=== PATIENT | female | born 1990 | race Caucasian/White ===

== ENCOUNTER 2019-06-02 14:33 | Emergency (ER) | payer OTHER ==
[2019-06-02] MEDS ORDERED: dexAMETHasone 4 MG TAB ONE (15:33)
[2019-06-02] MEDS ORDERED: ACETAMINOPHEN 500 MG TAB ONE (15:33)
--- NOTE | 2019-06-02 15:33 | ER ---
Nurse's Notes [facility] Name: Kristyn Fernando Age: 28 yrs Sex: Female : 1990 Arrival Date: 06/02/2019 Time: 14:37 Bed 13 Private MD: Diagnosis: Acute tonsillitis Presentation: 06/02 14:39 Presenting complaint: Patient states: sore throat, pain with swallowing, fatigue, la1 malaise, low back pain and urinary frequency. Transition of care: patient was not received from another setting of care. Onset of symptoms was June 02, 2019. Risk Assessment: Do you want to hurt yourself or someone else? Patient reports no desire to harm self or others. Initial Sepsis Screen: Does the patient meet any 2 criteria? No. Patient's initial sepsis screen is negative. Does the patient have a suspected source of infection? No. Patient's initial sepsis screen is negative. Care prior to arrival: None. 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 - Social history:: Smoking status: Patient uses tobacco products, denies chronic smoking, but will smoke occasionally. - Ebola Screening: : No symptoms or risks identified at this time. Screenin:30 Abuse screen: Denies threats or abuse. Denies injuries from another. Nutritional jl7 screening: No deficits noted. Tuberculosis screening: No symptoms or risk factors identified. Fall Risk None identified. Assessment: 15:30 General: Appears in no apparent distress. uncomfortable, Behavior is calm, cooperative, jl7 appropriate for age. Pain: Complains of pain in low back area Pain began 2-3 days ago. Is continuous. Neuro: Level of Consciousness is awake, alert, obeys commands, Oriented to person, place, time, situation. Cardiovascular: Patient's skin is warm and dry. Respiratory: Airway is patent Respiratory effort is even, unlabored, Respiratory pattern is regular, symmetrical. GI: Abdomen is flat, non-distended, Reports nausea. : Reports burning with urination, "It was burning but isn't burning anymore but I do feel like I have to go all the time but I only go a little." urinary frequency. EENT: Throat is reddened has patchy exudate has enlarged tonsils bilaterally. Derm: Skin is pink, warm \\T\\ dry. Vital Signs: 14:39 BP 99 / 67; Pulse 115; Resp 16; Temp 100.3; Pulse Ox 100% on R/A; Weight 56.7 kg; la1 Height 5 ft. 2 in. (157.48 cm); 14:39 Body Mass Index 22.86 (56.70 kg, 157.48 cm) la1 ED Course: 14:37 Patient arrived in ED. mr 14:39 Triage completed. la1 14:40 Arm band placed on left wrist. la1 15:21 Theodore Ayala PA is PHCP. cp 15:21 Theodore Hargrove MD is Attending Physician. cp 15:29 Michele Kyle RN is Primary Nurse. jl7 15:30 Patient has correct armband on for positive identification. Bed in low position. Call jl7 light in reach. Side rails up X 1. 15:40 Throat Culture Sent. jl7 15:50 No provider procedures requiring assistance completed. Patient did not have IV access jl7 during this emergency room visit. Administered Medications: 15:40 Drug: Tylenol 1000 mg Route: PO; jl7 15:50 Follow up: Response: No adverse reaction; Medication administered at discharge. jl7 15:40 Drug: Zofran 4 mg Route: PO; jl7 15:50 Follow up: Response: No adverse reaction; Medication administered at discharge. jl7 15:40 Drug: Decadron 10 mg Route: PO; jl7 15:50 Follow up: Response: Medication administered at discharge. jl7 Outcome: 15:32 Discharge ordered by MD. cp 15:50 Discharged to home ambulatory. jl7 15:50 Condition: stable 15:50 Discharge instructions given to patient, Instructed on discharge instructions, follow up and referral plans. medication usage, Demonstrated understanding of instructions, follow-up care, medications, Prescriptions given X 3. 15:54 Patient left the ED. jl7 Signatures: Irasema Hutton AlAnatoly porras, RN RN la1 Theodore Ayala PA PA cp Michele Kyle RN RN jl7 Corrections: (The following items were deleted from the chart) 14:46 14:39 BP 99 / 67; Pulse 115bpm; Resp 16bpm; Pulse Ox 100% RA; Temp 98.7F; 56.7 kg; la1 Height 5 ft. 2 in.; BMI: 22.8; la1
--- NOTE | 2019-06-02 15:33 | EDPHYS ---
Physician Documentation [facility] Name: Kristyn Fernando Age: 28 yrs Sex: Female : 1990 Arrival Date: 06/02/2019 Time: 14:37 Bed 13 Private MD: ED Physician Theodore Hargrove HPI: 06/02 15:29 This 28 yrs old Female presents to ER via Ambulatory with complaints of Flu cp Symptoms, Back Pain. 15:29 The patient presents with sore throat. Onset: The symptoms/episode began/occurred last cp night. Severity of symptoms: in the emergency department the symptoms are unchanged. Associated signs and symptoms: Pertinent positives: fever, nausea, abdominal pain, back pain. 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 - Social history:: Smoking status: Patient uses tobacco products, denies chronic smoking, but will smoke occasionally. - Ebola Screening: : No symptoms or risks identified at this time. ROS: 15:30 Constitutional: Positive for body aches. cp 15:30 Eyes: Negative for injury, pain, redness, and discharge. cp 15:30 ENT: Positive for sore throat, Negative for drainage from ear(s), ear pain, difficulty swallowing, difficulty handling secretions. 15:30 Respiratory: Negative for cough, wheezing. 15:30 Abdomen/GI: Negative for abdominal pain, vomiting, diarrhea, constipation. 15:30 Back: Positive for pain at rest, pain with movement. 15:30 : Positive for urinary frequency, Negative for burning with urination. 15:30 Skin: Negative for rash. 15:30 Neuro: Negative for altered mental status, weakness. 15:30 All other systems are negative. Exam: 15:31 Head/Face: Normocephalic, atraumatic. cp 15:31 Constitutional: The patient appears in no acute distress, alert, awake, non-toxic, well developed, well nourished. 15:31 Eyes: Periorbital structures: appear normal, Conjunctiva: normal, no exudate, no injection, Lids and lashes: appear normal, bilaterally. 15:31 ENT: External ear(s): are unremarkable, Ear canal(s): are normal, clear, TM's: dullness, bilaterally, Nose: is normal, Mouth: Lips: moist, Oral mucosa: moist, Posterior pharynx: Airway: no evidence of obstruction, patent, Tonsils: enlarged on the right, with erythema, with exudate, Uvula: midline, erythema, that is moderate, Voice: is normal. 15:31 Neck: ROM/movement: is normal, is supple, no range of motions limitations, no meningismus, no nuchal rigidity, Lymph nodes: lymphadenopathy is appreciated, anterior cervical nodes. 15:31 Chest/axilla: Inspection: normal, Palpation: is normal, no crepitus, no tenderness. 15:31 Cardiovascular: Rate: tachycardic, Rhythm: regular. 15:31 Respiratory: the patient does not display signs of respiratory distress, Respirations: normal, no use of accessory muscles, no retractions, no splinting, no tachypnea, labored breathing, is not present, Breath sounds: are clear throughout, no decreased breath sounds, no stridor, no wheezing. 15:31 Abdomen/GI: Inspection: abdomen appears normal, Bowel sounds: active, all quadrants, Palpation: soft, in all quadrants, mild abdominal tenderness, in all quadrants, rebound tenderness, is not appreciated, voluntary guarding, is not appreciated, involuntary guarding, is not appreciated. 15:31 Back: CVA tenderness, is absent. 15:31 Skin: no rash present. 15:31 Neuro: Orientation: to person, place \T\ time. Mentation: is normal, Motor: moves all fours, strength is normal, Sensation: is normal. Vital Signs: 14:39 BP 99 / 67; Pulse 115; Resp 16; Temp 100.3; Pulse Ox 100% on R/A; Weight 56.7 kg; la1 Height 5 ft. 2 in. (157.48 cm); 14:39 Body Mass Index 22.86 (56.70 kg, 157.48 cm) la1 MDM: 15:23 Patient medically screened. cp 15:30 Differential diagnosis: apthous stomatitis, apthous ulcer, group A strep tonsillitis, cp mononucleosis, peritonsillar abscess pharyngitis, retropharyngeal abcess. 15:32 Data reviewed: vital signs, nurses notes, lab test result(s), and as a result, I will cp discharge patient. 15:32 Counseling: I had a detailed discussion with the patient and/or guardian regarding: the cp historical points, exam findings, and any diagnostic results supporting the discharge/admit diagnosis, lab results, to return to the emergency department if symptoms worsen or persist or if there are any questions or concerns that arise at home. 06/02 14:40 Order name: Strep la1 06/02 15:11 Order name: Urine Dipstick--Ancillary (enter results) 06/02 15:11 Order name: Urine --Ancillary (enter results) 06/02 15:15 Order name: Throat Culture [facility] 06/02 15:30 Order name: PO challenge; Complete Time: 15:40 cp Administered Medications: 15:40 Drug: Tylenol 1000 mg Route: PO; jl7 15:50 Follow up: Response: No adverse reaction; Medication administered at discharge. jl7 15:40 Drug: Zofran 4 mg Route: PO; jl7 15:50 Follow up: Response: No adverse reaction; Medication administered at discharge. jl7 15:40 Drug: Decadron 10 mg Route: PO; jl7 15:50 Follow up: Response: Medication administered at discharge. jl7 Disposition: 16:08 Co-signature as Attending Physician, Theodore Hargrove MD I agree with the assessment and isabel plan of care. Disposition: 06/02/19 15:32 Discharged to Home. Impression: Acute tonsillitis. - Condition is Stable. - Discharge Instructions: Tonsillitis. - Prescriptions for Biaxin 500 mg Oral Tablet - take 1 tablet by ORAL route every 12 hours for 10 days; 20 tablet. Ibuprofen 800 mg Oral Tablet - take 1 tablet by ORAL route every 8 hours As needed take with food; 30 tablet. Zofran 4 mg Oral Tablet - take 1 tablet by ORAL route every 12 hours As needed; 20 tablet. - Medication Reconciliation Form, Thank You Letter, Antibiotic Education, Prescription Opioid Use form. - Follow up: Private Physician; When: 2 - 3 days; Reason: Worsening of condition. - Problem is new. - Symptoms have improved. Signatures: Dispatcher [employer] Theodore Foy MD MD cha Attema, Lee RN RN la1 Theodore Ayala PA PA cp Leal, Jahala, RN RN jl7 Corrections: (The following items were deleted from the chart) 15:54 15:32 06/02/2019 15:32 Discharged to Home. Impression: Acute tonsillitis. Condition is jl7 Stable. Forms are Medication Reconciliation Form, Thank You Letter, Antibiotic Education, Prescription Opioid Use. Follow up: Private Physician; When: 2 - 3 days; Reason: Worsening of condition. Problem is new. Symptoms have improved. cp
[2019-06-02] MEDS ORDERED: ONDANSETRON 4 MG (ODT) TAB ONE (15:34)
[2019-06-02 17:21] LABS: Urine Blood NEGATIVE (NEG); Urine Glucose NEGATIVE (NEG); Urine Protein TRACE (NEG)
== END 2019-06-02 15:54 | disposition home or self-care (01) ==
LOC: ER 14:33
DX: J03.90 Acute tonsillitis, unspecified (principal)
CPT/HCPCS: 81003; 81025; 87070; 87081; 99283

== ENCOUNTER 2019-08-25 12:23 | Emergency (ER) | payer OTHER ==
[2019-08-25] MEDS ORDERED: ACETAMINOPHEN 500 MG TAB ONE (14:47)
[2019-08-25 15:48] LABS: Absolute Lymphocytes (CBC) 0.5 K/uL (0.7-4.9); Basophils % 0.3 % (0-1.3); Lymphocytes % 3.2 % (15.3-44.8); MPV 8.5 fL (7.6-11.3); RBC Red Blood Cell Count 4.59 M/uL (3.86-4.86)
[2019-08-25 16:26] LABS: ALT/SGPT 23 U/L (12-78); AST/SGOT 13 U/L (15-37); Albumin 3.8 g/dL (3.4-5.0); Alkaline Phosphatase 80 U/L (45-117); BUN Blood Urea Nitrogen 6 mg/dL (7-18); Bicarbonate 21 mmol/L (21-32); Bilirubin Direct 0.1 mg/dL (0-0.2); Bilirubin Total 0.5 mg/dL (0.2-1.0); Glucose Level 94 mg/dL (74-106); HCG, Quantitative 85441 mIU/mL (1-3); Lipase 70 U/L (73-393); Potassium 3.4 mmol/L (3.5-5.1); Protein, Total 7.2 g/dL (6.4-8.2); Sodium Level 135 mmol/L (136-145)
[2019-08-25] MEDS ORDERED: NA CHLORIDE 0.9% 1,000 ML ONE (16:35)
[2019-08-25 16:40] LABS: Urine Bacteria <20 /HPF (<20); Urine Culture Reflex Order NOT NEEDED; Urine Mucus 2+ /HPF (NONE SEEN); Urine RBC <5 /HPF (NONE SEEN)
[2019-08-25] MEDS ORDERED: PROMETHAZINE 25 MG/ML VIAL ONE (16:42)
[2019-08-25 17:11] LABS: Urine Blood TRACE (NEG); Urine Glucose NEGATIVE (NEG); Urine Protein 1+ (NEG); Urine pH 5.5 (5.0-7.0)
[2019-08-25 17:20] LABS: Blood Morphology Comment NOT SEEN (NOT SEEN); Platelet Estimate ADEQ
--- NOTE | 2019-08-25 17:57 | ER ---
Nurse's Notes [facility] Name: Kristyn Fernando Age: 29 yrs Sex: Female : 1990 Arrival Date: 08/25/2019 Time: 12:24 Bed 28 Private MD: Diagnosis: Less than 8 weeks gestation of ;Nausea and vomiting;Diarrhea, unspecified Presentation: 08/25 12:46 Presenting complaint: Patient states: about 3 am this morning, i have been really tw2 constipated, but today i have yellowish brown liquid and today i threw up, i cant keep anything down, i am 6.5 weeks , i got these chills and achy, i am having really bad stomach cramps and i am really nauseous. Presenting complaint: Patient states: i am also having some rectal bleeding in the toilet, i did have hemorrhoids for 10 years but it has never bled like this. Transition of care: patient was not received from another setting of care. Onset of symptoms was August 25, 2019. Risk Assessment: Do you want to hurt yourself or someone else? Patient reports no desire to harm self or others. Initial Sepsis Screen: Does the patient meet any 2 criteria? No. Patient's initial sepsis screen is negative. Does the patient have a suspected source of infection? No. Patient's initial sepsis screen is negative. Care prior to arrival: None. 12:46 Method Of Arrival: Ambulatory tw2 12:46 Acuity: ZAHRAA 3 tw2 Triage Assessment: 12:48 General: Appears uncomfortable, Behavior is cooperative, appropriate for age. Pain: tw2 Complains of pain in abdomen. GI: Reports lower abdominal pain, upper abdominal pain, cramping, diarrhea, hemorrhoids, intolerance of fluids, intolerance of food, nausea, vomiting. 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 - Social history:: Smoking status: . - Ebola Screening: : Patient denies travel to an Ebola-affected area in the 21 days before illness onset. Screenin:52 Abuse screen: Denies threats or abuse. Denies injuries from another. Nutritional rv screening: No deficits noted. Tuberculosis screening: No symptoms or risk factors identified. Fall Risk None identified. Assessment: 14:51 General: Appears in no apparent distress. uncomfortable, Behavior is crying. Pain: rv Complains of pain in abdomen Pain currently is 8 out of 10 on a pain scale. Quality of pain is described as crampy. Neuro: Level of Consciousness is awake, alert, obeys commands, Oriented to person, place, time, situation. Cardiovascular: Patient's skin is warm and dry. Respiratory: Airway is patent. GI: Bowel sounds present X 4 quads. Abd is soft and non tender X 4 quads. : No signs and/or symptoms were reported regarding the genitourinary system. EENT: No signs and/or symptoms were reported regarding the EENT system. Derm: Skin is intact. Musculoskeletal: No signs and/or symptoms reported regarding the musculoskeletal system. Vital Signs: 12:49 BP 120 / 73; Pulse 95; Resp 18; Temp 100.2(O); Pulse Ox 100% on R/A; Weight 62.6 kg; tw2 Pain 7/10; 14:50 BP 114 / 73; Pulse 68; Resp 16; Temp 100.7(O); Pulse Ox 100% on R/A; Pain 8/10; rv 15:40 BP 98 / 64; Pulse 83; Resp 16; Temp 99.9(O); Pulse Ox 99% ; lt1 16:24 BP 101 / 59; Pulse 78; Resp 16; Pulse Ox 98% on R/A; rv 18:26 BP 108 / 66; Pulse 69; Resp 16; Temp 99(O); Pulse Ox 100% on R/A; rv ED Course: 12:24 Patient arrived in ED. as 12:48 Triage completed. tw2 12:48 Arm band placed on. tw2 14:40 Jc Torres RN is Primary Nurse. rv 14:41 Mara James FNP-C is PHCP. kb 14:41 Magdy Garay MD is Attending Physician. kb 14:52 Patient has correct armband on for positive identification. Bed in low position. Call rv light in reach. Side rails up X 1. Pulse ox on. NIBP on. 15:36 Inserted saline lock: 20 gauge in left antecubital area, using aseptic technique. Blood rv collected. 17:59 US Abdomen Limited In Process Unspecified. EDMS 17:59 US Transvaginal Ob In Process Unspecified. EDMS 18:27 No provider procedures requiring assistance completed. IV discontinued, intact, rv bleeding controlled, No redness/swelling at site. Pressure dressing applied. Administered Medications: 14:48 Drug: Tylenol 1000 mg Route: PO; rv 15:36 Follow up: Response: Temperature is decreased rv 16:33 CANCELLED (Duplicate Order): Phenergan 6.25 mg IM once kb 16:44 Drug: NS 0.9% 1000 ml Route: IV; Rate: 1000 ml; Site: left antecubital; rv 18:27 Follow up: IV Status: Completed infusion; IV Intake: 1000ml rv 16:44 Drug: Phenergan 6.25 mg Route: IVP; Site: left antecubital; rv 18:27 Follow up: Response: No adverse reaction rv Intake: 18:27 IV: 1000ml; Total: 1000ml. rv Outcome: 17:57 Discharge ordered by MD. kb 18:27 Discharged to home ambulatory. rv 18:27 Condition: good 18:27 Discharge instructions given to patient, Instructed on discharge instructions, follow up and referral plans. medication usage, Demonstrated understanding of instructions, follow-up care, medications, Prescriptions given X 1. 18:27 Patient left the ED. rv Signatures: Dispatcher [employer] EDMS Mara James, BIANKA LAWSON-Rose Dimas Tara RN RN tw2 Jc Torres RN RN Ary Weller lt1
--- NOTE | 2019-08-25 17:58 | EDPHYS ---
Physician Documentation [facility] Name: Kristyn Fernando Age: 29 yrs Sex: Female : 1990 Arrival Date: 08/25/2019 Time: 12:24 Bed 28 Private MD: ED Physician Magdy Garay HPI: 08/25 16:47 This 29 yrs old Female presents to ER via Ambulatory with complaints of kb Abdominal Cramping - 6 wks preg, Vomiting, Rectal Bleeding. 16:47 The patient presents with abdominal pain in the upper abdomen. Onset: The kb symptoms/episode began/occurred 3 day(s) ago. The symptoms do not radiate. Associated signs and symptoms: Pertinent positives: nausea, vomiting, and diarrhea, fever. The symptoms are described as constant. Modifying factors: The symptoms are alleviated by nothing, the symptoms are aggravated by pressure. Severity of pain: At its worst the pain was moderate in the emergency department the pain is unchanged. The patient has not experienced similar symptoms in the past. The patient has not recently seen a physician. 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 - Social history:: Smoking status: . - Ebola Screening: : Patient denies travel to an Ebola-affected area in the 21 days before illness onset. ROS: 16:50 ENT: Negative for injury, pain, and discharge, Neck: Negative for injury, pain, and kb swelling, Cardiovascular: Negative for chest pain, palpitations, and edema, Respiratory: Negative for shortness of breath, cough, wheezing, and pleuritic chest pain, Back: Negative for injury and pain, : Negative for injury, bleeding, discharge, and swelling, MS/Extremity: Negative for injury and deformity, Skin: Negative for injury, rash, and discoloration, Neuro: Negative for headache, weakness, numbness, tingling, and seizure. 16:50 Constitutional: Positive for fever. 16:50 Abdomen/GI: Positive for abdominal pain, nausea, vomiting, and diarrhea, rectal bleeding. Exam: 16:50 Constitutional: This is a well developed, well nourished patient who is awake, alert, kb and in no acute distress. Head/Face: Normocephalic, atraumatic. ENT: Nares patent. No nasal discharge, no septal abnormalities noted. Tympanic membranes are normal and external auditory canals are clear. Oropharynx with no redness, swelling, or masses, exudates, or evidence of obstruction, uvula midline. Mucous membranes moist. Neck: Trachea midline, no thyromegaly or masses palpated, and no cervical lymphadenopathy. Supple, full range of motion without nuchal rigidity, or vertebral point tenderness. No Meningismus. Chest/axilla: Normal chest wall appearance and motion. Nontender with no deformity. No lesions are appreciated. Cardiovascular: Regular rate and rhythm with a normal S1 and S2. No gallops, murmurs, or rubs. Normal PMI, no JVD. No pulse deficits. Respiratory: Lungs have equal breath sounds bilaterally, clear to auscultation and percussion. No rales, rhonchi or wheezes noted. No increased work of breathing, no retractions or nasal flaring. Back: No spinal tenderness. No costovertebral tenderness. Full range of motion. Skin: Warm, dry with normal turgor. Normal color with no rashes, no lesions, and no evidence of cellulitis. MS/ Extremity: Pulses equal, no cyanosis. Neurovascular intact. Full, normal range of motion. Neuro: Awake and alert, GCS 15, oriented to person, place, time, and situation. Cranial nerves II-XII grossly intact. Motor strength 5/5 in all extremities. Sensory grossly intact. Cerebellar exam normal. Normal gait. 16:50 Abdomen/GI: Inspection: abdomen appears normal, Bowel sounds: normal, in all quadrants, Palpation: soft, in all quadrants, nontender, in the right lower quadrant and left lower quadrant, moderate abdominal tenderness, in the right upper quadrant and left upper quadrant. 17:14 Abdomen/GI: Rectal exam: rectal tone normal, Stool: normal, guaiac negative, kb tenderness, is not appreciated, fecal impaction, is not appreciated. Vital Signs: 12:49 BP 120 / 73; Pulse 95; Resp 18; Temp 100.2(O); Pulse Ox 100% on R/A; Weight 62.6 kg; tw2 Pain 7/10; 14:50 BP 114 / 73; Pulse 68; Resp 16; Temp 100.7(O); Pulse Ox 100% on R/A; Pain 8/10; rv 15:40 BP 98 / 64; Pulse 83; Resp 16; Temp 99.9(O); Pulse Ox 99% ; lt1 16:24 BP 101 / 59; Pulse 78; Resp 16; Pulse Ox 98% on R/A; rv 18:26 BP 108 / 66; Pulse 69; Resp 16; Temp 99(O); Pulse Ox 100% on R/A; rv MDM: 14:41 Patient medically screened. kb 16:51 Data reviewed: vital signs, nurses notes. Data interpreted: Pulse oximetry: on room air kb is 98 %. Interpretation: normal. 17:56 Counseling: I had a detailed discussion with the patient and/or guardian regarding: the kb historical points, exam findings, and any diagnostic results supporting the discharge/admit diagnosis, lab results, radiology results, the need for outpatient follow up, a family practitioner, an OB/Gyne specialist, to return to the emergency department if symptoms worsen or persist or if there are any questions or concerns that arise at home. 08/26 11:53 ED course: I called pt to see how she was doing today. Reports fever has resolved and kb she is able to tolerate PO intake today with increased appetite since yesterday. Reports still having cramping and diarrhea. Educated to keep up with fluids for hydration and to return if she has any concerns, is unable to tolerate PO intake or fever returns. Educated on possible need for stool testing.. 08/25 12:42 Order name: Urine Culture [facility] 08/25 12:42 Order name: Urine Microscopic Only; Complete Time: 16:45 w 08/25 14:46 Order name: Flu; Complete Time: 15:32 kb 08/25 15:19 Order name: Basic Metabolic Panel; Complete Time: 16:27 kb 08/25 15:19 Order name: CBC with Diff; Complete Time: 17:22 kb 08/25 15:19 Order name: Hepatic Function; Complete Time: 16:27 kb 08/25 15:19 Order name: Lipase; Complete Time: 16:27 kb 08/25 15:19 Order name: Quantitative Hcg; Complete Time: 16:27 kb 08/25 15:19 Order name: Abo/rh Typing; Complete Time: 16:39 kb 08/25 16:27 Order name: Urine Dipstick--Ancillary (enter results); Complete Time: 17:13 eb 08/25 16:27 Order name: Urine --Ancillary (enter results); Complete Time: 17:13 eb 08/25 16:37 Order name: US Abdomen Limited; Complete Time: 11:49 kb 08/25 17:15 Order name: Guiac; Complete Time: 11:49 kb 08/25 17:20 Order name: Manual Differential; Complete Time: 17:22 EDMS 08/25 12:42 Order name: Urine Test (obtain specimen); Complete Time: 16:23 snw 08/25 12:42 Order name: Urine Dipstick-Ancillary (obtain specimen); Complete Time: 16:23 snw 08/25 15:19 Order name: IV Saline Lock; Complete Time: 15:37 kb 08/25 15:19 Order name: Labs collected and sent; Complete Time: 15:37 kb 08/25 16:37 Order name: Transvaginal Ob; Complete Time: 11:49 kb Administered Medications: 08/25 14:48 Drug: Tylenol 1000 mg Route: PO; rv 15:36 Follow up: Response: Temperature is decreased rv 16:33 CANCELLED (Duplicate Order): Phenergan 6.25 mg IM once kb 16:44 Drug: NS 0.9% 1000 ml Route: IV; Rate: 1000 ml; Site: left antecubital; rv 18:27 Follow up: IV Status: Completed infusion; IV Intake: 1000ml rv 16:44 Drug: Phenergan 6.25 mg Route: IVP; Site: left antecubital; rv 18:27 Follow up: Response: No adverse reaction rv Disposition: 08/25/19 17:57 Discharged to Home. Impression: Less than 8 weeks gestation of , Nausea and vomiting, Diarrhea, unspecified. - Condition is Stable. - Discharge Instructions: Food Choices to Help Relieve Diarrhea, Adult, Viral Gastroenteritis, Adult, [id number], First Trimester of , [id number]. - Prescriptions for promethazine 25 mg Oral Tablet - take 1 tablet by ORAL route every 8 hours As needed; 20 tablet. - Medication Reconciliation Form, Thank You Letter, Antibiotic Education, Prescription Opioid Use form. - Follow up: Emergency Department; When: As needed; Reason: Worsening of condition. Follow up: Private Physician; When: 2 - 3 days; Reason: Recheck today's complaints, Continuance of care, Re-evaluation by your physician. Addendum: 08/29/2019 06:32 Co-signature as Attending Physician, Magdy Garay MD I agree with the assessment and k dr plan of care. Signatures: Dispatcher [employer] EDMS Mara James, ROLL SLICING MACHINE TENDER-C ROLL SLICING MACHINE TENDER-Ckb Magdy Garay MD MD [facility] Lilian Shaikh, LULU-C ROLL SLICING MACHINE TENDER-Csnw Gayla Rivera RN RN tw2 Jc Torres, RN RN rv Corrections: (The following items were deleted from the chart) 08/25 16:33 16:32 Phenergan 6.25 mg IM once ordered. kb kb 18:27 17:57 08/25/2019 17:57 Discharged to Home. Impression: Less than 8 weeks gestation of rv ; Nausea and vomiting; Diarrhea, unspecified. Condition is Stable. Forms are Medication Reconciliation Form, Thank You Letter, Antibiotic Education, Prescription Opioid Use. Follow up: Emergency Department; When: As needed; Reason: Worsening of condition. Follow up: Private Physician; When: 2 - 3 days; Reason: Recheck today's complaints, Continuance of care, Re-evaluation by your physician. kb
--- NOTE | 2019-08-25 18:15 | RAD REPORT ---
EXAM DESCRIPTION: US - Abdomen Exam Limited - 08/25/2019 5:58 pm CLINICAL HISTORY: Abdominal pain. COMPARISON: None. FINDINGS: The gallbladder wall is not thickened. A gallstone is not seen. The biliary tree is normal caliber. IMPRESSION: Unremarkable gallbladder ultrasound.
--- NOTE | 2019-08-25 18:21 | RAD REPORT ---
EXAM DESCRIPTION: US - Transvaginal OB - 08/25/2019 5:59 pm CLINICAL HISTORY: with pelvic pain COMPARISON: None. FINDINGS: The uterus is retroverted and measures 9 x 6 x 7 centimeters. A normal appearing gestatio nal sac is present within the endometrium. Within this is a yolk sac and pole with a crown-rump length 1 centimeter. Cardiac activity 149 beats per minute 4 centimeter isoechoic structure is present within the uterine body Neither ovary visualized. . An adnexal mass is not noted. No significant free fluid is seen. IMPRESSION: Single live intrauterine with an estimated gestational age 7 weeks 0 days TIFFANY 04/12/2020 4 centimeter isoechoic structure within the uterine body may represent a fibroid and should be monito red on a subsequent examination
[2019-08-25 19:06] VITALS: BP 108/66; TEMP 99; O2SAT 100
== END 2019-08-25 18:27 | disposition home or self-care (01) ==
LOC: ER 12:23
DX: O21.9 Vomiting of pregnancy, unspecified (principal); Z3A.01 Less than 8 weeks gestation of pregnancy
CPT/HCPCS: 96361; 87088; 85025; 87086; 80048; 36415; 86900; 81025; 86901; 80076; 82272; 84702; 83690; 87804 ×2; 76705; 76817; 96374; 99284; J2550; J7030; 81003; 81015

== ENCOUNTER 2019-10-18 16:09 | Emergency (ER) | payer OTHER ==
--- NOTE | 2019-10-18 17:33 | RAD REPORT ---
EXAM DESCRIPTION: US - Transvaginal Study Probe - 10/18/2019 5:12 pm CLINICAL HISTORY: Vaginal bleeding COMPARISON: none FINDINGS: The uterus is retroverted measuring 8 x 5 x 6 centimeters. The endometrial stripe within the uterine fundus is not well visualized but appears to measure approx imately 10 millimeters. There is increased vascularity. The ovaries are normal in size and echotexture. The right and left adnexa are unremarkable No significant free fluid is seen. IMPRESSION: Endometrial stripe is considered borderline thickened for retained products of conceptio n. However, the increased vascularity raises the suspicion that retained products of conception are p resent
[2019-10-18] MEDS ORDERED: LORAZEPAM 0.5 MG TABLET ONE (17:56)
[2019-10-18 18:15] LABS: Absolute Lymphocytes (CBC) 3.2 K/uL (0.7-4.9); Basophils % 0.6 % (0-1.3); Hematocrit 40.9 % (36.0-45.0); Lymphocytes % 32.7 % (15.3-44.8); MPV 8.8 fL (7.6-11.3); RBC Red Blood Cell Count 4.84 M/uL (3.86-4.86)
[2019-10-18] MEDS ORDERED: NA CHLORIDE 0.9% 1,000 ML ONE (18:24)
[2019-10-18 18:42] LABS: Potassium 3.9 mmol/L (3.5-5.1)
[2019-10-18 18:54] LABS: Blood Morphology Comment NOT SEEN (NOT SEEN); Platelet Estimate ADEQ; Urine White Blood Cell Casts OK
--- NOTE | 2019-10-18 19:36 | EDPHYS ---
Physician Documentation [facility] Name: Kristyn Fernando Age: 29 yrs Sex: Female : 1990 Arrival Date: 10/18/2019 Time: 16:16 Bed 25 Private MD: ED Physician Magdy Garay HPI: 10/18 17:06 This 29 yrs old Female presents to ER via Ambulatory with complaints of kb Vaginal Bleeding. 17:06 This 29 yrs old Female presents to ER via Ambulatory with complaints of kb Vaginal Bleeding. 17:06 The patient presents with vaginal bleeding that is heavy, with clots. Onset: The kb symptoms/episode began/occurred today. Modifying factors: The symptoms are alleviated by nothing, the symptoms are aggravated by nothing. Associated signs and symptoms: Pertinent positives: vaginal bleeding. Severity of symptoms: At their worst the symptoms were moderate, in the emergency department the symptoms are unchanged. The patient is sexually active, reportedly has a single partner, does not use protection during intercourse. The patient's method of control includes nothing. The patient has not experienced similar symptoms in the past. The patient has not recently seen a physician. Pt reports she had an elective a month ago. Reports she had vaginal bleeding for a week, then stopped. Started spotting on 10/12/19 so she thought she was starting her first normal period. States it has been irregular and intermittent for the last 6 days (spotting one day, then not the next). Today she started bleeding more and then passed a large clot with "projectile bleeding" when she removed the last tampon. . 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 - Social history:: Smoking status: Patient uses tobacco products, 2-3 cigarettes/day. - Ebola Screening: : No symptoms or risks identified at this time. ROS: 17:06 Constitutional: Negative for fever, chills, and weight loss, ENT: Negative for injury, kb pain, and discharge, Neck: Negative for injury, pain, and swelling, Cardiovascular: Negative for chest pain, palpitations, and edema, Respiratory: Negative for shortness of breath, cough, wheezing, and pleuritic chest pain, Abdomen/GI: Negative for abdominal pain, nausea, vomiting, diarrhea, and constipation, Back: Negative for injury and pain, MS/Extremity: Negative for injury and deformity, Skin: Negative for injury, rash, and discoloration, Neuro: Negative for headache, weakness, numbness, tingling, and seizure. 17:06 : Positive for vaginal bleeding. Exam: 17:06 Constitutional: This is a well developed, well nourished patient who is awake, alert, kb and in no acute distress. Head/Face: Normocephalic, atraumatic. Neck: Trachea midline, no thyromegaly or masses palpated, and no cervical lymphadenopathy. Supple, full range of motion without nuchal rigidity, or vertebral point tenderness. No Meningismus. Chest/axilla: Normal chest wall appearance and motion. Nontender with no deformity. No lesions are appreciated. Cardiovascular: Regular rate and rhythm with a normal S1 and S2. No gallops, murmurs, or rubs. Normal PMI, no JVD. No pulse deficits. Respiratory: Lungs have equal breath sounds bilaterally, clear to auscultation and percussion. No rales, rhonchi or wheezes noted. No increased work of breathing, no retractions or nasal flaring. Abdomen/GI: Soft, non-tender, with normal bowel sounds. No distension or tympany. No guarding or rebound. No evidence of tenderness throughout. Back: No spinal tenderness. No costovertebral tenderness. Full range of motion. Skin: Warm, dry with normal turgor. Normal color with no rashes, no lesions, and no evidence of cellulitis. MS/ Extremity: Pulses equal, no cyanosis. Neurovascular intact. Full, normal range of motion. Neuro: Awake and alert, GCS 15, oriented to person, place, time, and situation. Cranial nerves II-XII grossly intact. Motor strength 5/5 in all extremities. Sensory grossly intact. Cerebellar exam normal. Normal gait. 17:06 Constitutional: The patient appears anxious. kb Vital Signs: 16:25 BP 128 / 89; Pulse 72; Resp 17 S; Temp 98.2(O); Pulse Ox 98% on R/A; Weight 58.97 kg jl7 (R); Height 5 ft. 2 in. (157.48 cm) (R); Pain 1/10; 17:20 BP 134 / 80 Supine; Pulse 69; lt1 17:23 BP 131 / 93 Sitting; Pulse 70; lt1 17:26 BP 138 / 93 Standing; Pulse 76; lt1 18:29 BP 121 / 96; Pulse 58; Resp 18; Pulse Ox 100% on R/A; aj1 19:30 BP 125 / 85; Pulse 60; Resp 18; Temp 98; Pulse Ox 98% ; Pain 0/10; jv1 16:25 Body Mass Index 23.78 (58.97 kg, 157.48 cm) jl7 MDM: 16:23 Patient medically screened. kb 17:06 Data reviewed: vital signs, nurses notes. Data interpreted: Pulse oximetry: on room air kb is 98 %. Interpretation: normal. 17:43 ED course: PT reports she had the elective at an clinic in [place]. kb STates she knows there is not retained products because she had a D\\T\\C and had no complications. Pt states she is freaking out and feels like she is going to crawl out of her skin.. 19:32 Counseling: I had a detailed discussion with the patient and/or guardian regarding: the kb historical points, exam findings, and any diagnostic results supporting the discharge/admit diagnosis, lab results, radiology results, the need for outpatient follow up, a family practitioner, to return to the emergency department if symptoms worsen or persist or if there are any questions or concerns that arise at home. ED course: Discussed pt's condition and diagnostics with Dr Medina. Dr Medina reviewed diagnostics and evaluated pt. Pt educated to have repeat quant and US in a week and to follow up with OB. Educated to return for foul smelling discharge, pain, fever, or any other concerns. Verbal understanding of all information received and pt in agreement with plan of care. . 10/18 17:35 Order name: CBC with Diff; Complete Time: 18:55 kb 10/18 17:35 Order name: Basic Metabolic Panel; Complete Time: 18:54 kb 10/18 16:36 Order name: US Transvaginal Study (Probe); Complete Time: 17:35 kb 10/18 17:43 Order name: Test, Serum; Complete Time: 18:36 kb 10/18 18:37 Order name: Quantitative Hcg; Complete Time: 19:08 kb 10/18 18:54 Order name: CBC Smear Scan; Complete Time: 18:55 EDMD 10/18 16:36 Order name: Orthostatics; Complete Time: 17:38 kb 10/18 17:35 Order name: IV Start; Complete Time: 17:59 kb Administered Medications: 17:58 Drug: Ativan 0.5 mg Route: PO; aj1 19:19 Follow up: Response: No adverse reaction aj1 18:30 Drug: NS 0.9% 1000 ml Route: IV; Rate: 1000 ml; Site: left antecubital; aj1 19:45 Follow up: Response: No adverse reaction; IV Intake: 1000ml jv1 Disposition: 10/19 07:34 Co-signature as Attending Physician, Magdy Garay MD I agree with the assessment and kdr plan of care. Disposition: 10/18/19 19:35 Discharged to Home. Impression: Abnormal uterine and vaginal bleeding, unspecified. - Condition is Stable. - Discharge Instructions: Abnormal Uterine Bleeding, [id number]. - Medication Reconciliation Form, Thank You Letter, Antibiotic Education, Prescription Opioid Use form. - Follow up: Emergency Department; When: As needed; Reason: Worsening of condition. Follow up: Private Physician; When: 2 - 3 days; Reason: Recheck today's complaints, Continuance of care, Re-evaluation by your physician. Signatures: Dispatcher [employer] [facility] Mara James, RECREATION COUNSELOR-C RECREATION COUNSELOR-Ckb Tessie Dykes RN RN aj1 Magdy Garay MD MD kdr Michele Kyle RN RN jl7 Mona Torres, SERAFIN RN jv1 Corrections: (The following items were deleted from the chart) 10/18 17:06 17:06 Constitutional: This is a well developed, well nourished patient who is awake, kb alert, and in no acute distress. Head/Face: Normocephalic, atraumatic. Neck: Trachea midline, no thyromegaly or masses palpated, and no cervical lymphadenopathy. Supple, full range of motion without nuchal rigidity, or vertebral point tenderness. No Meningismus. Chest/axilla: Normal chest wall appearance and motion. Nontender with no deformity. No lesions are appreciated. Cardiovascular: Regular rate and rhythm with a normal S1 and S2. No gallops, murmurs, or rubs. Normal PMI, no JVD. No pulse deficits. Respiratory: Lungs have equal breath sounds bilaterally, clear to auscultation and percussion. No rales, rhonchi or wheezes noted. No increased work of breathing, no retractions or nasal flaring. Abdomen/GI: Soft, non-tender, with normal bowel sounds. No distension or tympany. No guarding or rebound. No evidence of tenderness throughout. Back: No spinal tenderness. No costovertebral tenderness. Full range of motion. Skin: Warm, dry with normal turgor. Normal color with no rashes, no lesions, and no evidence of cellulitis. MS/ Extremity: Pulses equal, no cyanosis. Neurovascular intact. Full, normal range of motion. Neuro: Awake and alert, GCS 15, oriented to person, place, time, and situation. Cranial nerves II-XII grossly intact. Motor strength 5/5 in all extremities. Sensory grossly intact. Cerebellar exam normal. Normal gait. kb 20:23 19:35 10/18/2019 19:35 Discharged to Home. Impression: Abnormal uterine and vaginal jv1 bleeding, unspecified. Condition is Stable. Forms are Medication Reconciliation Form, Thank You Letter, Antibiotic Education, Prescription Opioid Use. Follow up: Emergency Department; When: As needed; Reason: Worsening of condition. Follow up: Private Physician; When: 2 - 3 days; Reason: Recheck today's complaints, Continuance of care, Re-evaluation by your physician. kb
--- NOTE | 2019-10-18 19:36 | ER ---
Nurse's Notes [facility] Name: Kristyn Fernando Age: 29 yrs Sex: Female : 1990 Arrival Date: 10/18/2019 Time: 16:16 Bed 25 Private MD: Diagnosis: Abnormal uterine and vaginal bleeding, unspecified Presentation: 10/18 16:20 Presenting complaint: Patient states: LMP 10/12/19 with intermittent bleeding since then, jl7 severe heaving bleeding today since 1440, large clot forced tampon out that I just changed, clot and yellowish substance came out with it, reports LLQ stabbing pain just prior to the large clot. Transition of care: patient was not received from another setting of care. Onset of symptoms was October 18, 2019 at 14:40. Risk Assessment: Do you want to hurt yourself or someone else? Patient reports no desire to harm self or others. Initial Sepsis Screen: Does the patient meet any 2 criteria? No. Patient's initial sepsis screen is negative. Does the patient have a suspected source of infection? No. Patient's initial sepsis screen is negative. Care prior to arrival: None. 16:20 Method Of Arrival: Ambulatory jl7 16:20 Acuity: ZAHRAA 3 jl7 Triage Assessment: 16:25 General: Appears in no apparent distress. uncomfortable, Behavior is calm, cooperative, jl7 appropriate for age. Pain: Complains of pain in left lower quadrant Pain currently is 1 out of 10 on a pain scale. Quality of pain is described as crampy, Is intermittent. : Reports vaginal bleeding that is bright red, with clots, heavy flow. 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 - Social history:: Smoking status: Patient uses tobacco products, 2-3 cigarettes/day. - Ebola Screening: : No symptoms or risks identified at this time. Screenin:10 Abuse screen: Denies threats or abuse. Denies injuries from another. Nutritional aj1 screening: No deficits noted. Tuberculosis screening: No symptoms or risk factors identified. 19:30 Fall Risk None identified. No fall in past 12 months (0 pts). jv1 Assessment: 17:10 General: Appears in no apparent distress. Behavior is calm, cooperative, appropriate aj1 for age. Pain: Denies pain. Neuro: Level of Consciousness is awake, alert, obeys commands, Oriented to person, place, time, situation. Cardiovascular: Patient's skin is warm and dry. Respiratory: Airway is patent Respiratory effort is even, unlabored, Respiratory pattern is regular, symmetrical. GI: No signs and/or symptoms were reported involving the gastrointestinal system. : Reports vaginal bleeding that is bright red. EENT: No signs and/or symptoms were reported regarding the EENT system. Derm: No signs and/or symptoms reported regarding the dermatologic system. Skin is pink, warm \\T\\ dry. normal. Musculoskeletal: No signs and/or symptoms reported regarding the musculoskeletal system. Circulation, motion, and sensation intact. 18:00 Reassessment: Patient appears agitated, while explaining ordered medications patient aj1 does not look at or acknowledge staff. When patient's says her name to get her attention patient yells "I'm listening". Medication was again explained, may cause drowsiness, patient may not drive after taking this medication. Patient verbalized understanding. 18:15 Reassessment: Patient appears agitated, asking how long it will take for labs to be aj1 run. Explained to patient that typical turn around time for labs is 30 minutes to an hour. Patient states that she was told that she was going to get IV fluids. Explained to patient that there is not an order for fluids at this time, but I will speak with the COAL SHOVELER to clarify. Tony Gao NP notified of patient request. Order received. 19:30 Reassessment: Patient and/or family updated on plan of care and expected duration. Pain jv1 level reassessed. Patient is alert, oriented x 3, equal unlabored respirations, skin warm/dry/pink. Patient denies pain at this time. Vital Signs: 16:25 BP 128 / 89; Pulse 72; Resp 17 S; Temp 98.2(O); Pulse Ox 98% on R/A; Weight 58.97 kg jl7 (R); Height 5 ft. 2 in. (157.48 cm) (R); Pain 1/10; 17:20 BP 134 / 80 Supine; Pulse 69; lt1 17:23 BP 131 / 93 Sitting; Pulse 70; lt1 17:26 BP 138 / 93 Standing; Pulse 76; lt1 18:29 BP 121 / 96; Pulse 58; Resp 18; Pulse Ox 100% on R/A; aj1 19:30 BP 125 / 85; Pulse 60; Resp 18; Temp 98; Pulse Ox 98% ; Pain 0/10; jv1 16:25 Body Mass Index 23.78 (58.97 kg, 157.48 cm) jl7 ED Course: 16:16 Patient arrived in ED. mr 16:19 Mar[facility] James, [facility] kb 16:19 Magdy Garay MD is Attending Physician. kb 16:25 Triage completed. jl7 16:25 Arm band placed on right wrist. jl7 16:31 Tessie Dykes, RN is Primary Nurse. aj1 17:10 Patient has correct armband on for positive identification. aj1 17:10 No provider procedures requiring assistance completed. aj1 17:12 US Transvaginal Study (Probe) In Process Unspecified. EDMS 17:58 Initial lab(s) drawn, by pa, sent to lab. Inserted saline lock: 22 gauge in left lt1 antecubital area, using aseptic technique. 20:00 IV discontinued, intact, bleeding controlled, No redness/swelling at site. Pressure jv1 dressing applied. Administered Medications: 17:58 Drug: Ativan 0.5 mg Route: PO; aj1 19:19 Follow up: Response: No adverse reaction aj1 18:30 Drug: NS 0.9% 1000 ml Route: IV; Rate: 1000 ml; Site: left antecubital; aj1 19:45 Follow up: Response: No adverse reaction; IV Intake: 1000ml jv1 Intake: 19:45 IV: 1000ml; Total: 1000ml. jv1 Outcome: 19:35 Discharge ordered by . kb 19:45 Discharged to home ambulatory, with family. jv1 19:45 Condition: improved 19:45 Discharge instructions given to patient, family, significant other, Instructed on discharge instructions, follow up and referral plans. Demonstrated understanding of instructions. 20:23 Patient left the ED. jv1 Signatures: Dispatcher [employer] Mara Canales, BATTALION CHIEF-C BATTALION CHIEF-Ckb Tessie Dykes, RN RN aj1 Hutton, Irasema Michele Gonzalez RN RN jl7 Mona Torres, RN RN jv1 Janee, Ary 1
[2019-10-18 20:44] VITALS: BP 125/85; TEMP 98; O2SAT 98
== END 2019-10-18 20:23 | disposition home or self-care (01) ==
LOC: ER 16:09
DX: N93.9 Abnormal uterine and vaginal bleeding, unspecified (principal); Z72.0 Tobacco use
CPT/HCPCS: 85025; 80048; 36415; 84703; 84702; 76830; 99284; J7030